=== PATIENT | female | born 1980 | race African-American/Black ===

== ENCOUNTER 2022-06-30 12:09 | Emergency (ER) | payer MEDICAID, MEDICARE ==
[~2022-06-30] VITALS: Ht 170.2 cm; Wt 93.1 kg
[2022-06-30 13:46] LABS: EOSINOPHILS % 0.9 % (0.0-5.0); HEMOGLOBIN. 12.1 g/dL (12.0-16.0); LYMPHOCYTES % 41.3 % (20.0-50.0); MEAN CORPUSCULAR HEMOGLOBIN 22.6 pg (28.0-32.0); MEAN CORPUSCULAR VOLUME 71.1 fL (81.0-99.0); MEAN PLATELET VOLUME 9.2 fl (7.4-10.4); MONOCYTES % 11.9 % (2.0-8.0); NEUTROPHILS % 44.9 % (40.0-76.0); PLATELET 365 x1000/uL (130-400); RED BLOOD CELL COUNT 5.35 mill/uL (4.2-5.4); RED CELL DISTRIBUTION WIDTH 19.3 % (11.6-14.6)
[2022-06-30 13:54] LABS: HCG SCREEN NEGATIVE
[2022-06-30 13:57] LABS: CHLORIDE 107 mEq/L (98-107)
[2022-06-30 14:25] LABS: PROTHROMBIN TIME 10.9 sec (9.6-11.0)
[2022-06-30] MEDS ORDERED: LIDOCAINE 2G PREMIX 500 ML IV PRN ×2 (15:00)
[2022-06-30] MEDS ORDERED: LIDOCAINE 2G PREMIX 500 ML IV SCH (15:00)
[2022-06-30] MEDS ORDERED: RIZA10TA97 PO (15:05)
[2022-06-30 15:30] VITALS: BP 140/89
[2022-06-30] MEDS ORDERED: ONDANSETRON 4MG ODT PO ONE (15:30)
== END 2022-06-30 16:01 | disposition home or self-care (01) ==
LOC: ER 12:09
DX: G43.809 Other migraine, not intractable, without status migrainosus (principal); F41.9 Anxiety disorder, unspecified; Z88.5 Allergy status to narcotic agent
CPT/HCPCS: 36415; 70450; 80053; 83735; 84703; 85025; 85610; 99284; Q0162; J2001